=== PATIENT | female | born 1975 | race Caucasian/White ===

== ENCOUNTER 2017-03-03 14:48 | Emergency (ER) | payer SELFPAY ==
[2017-03-03 14:59] VITALS: BP 114/71; PULSE 69; TEMP 98.5; BMI 23.4
[2017-03-03] MEDS ORDERED: amLODIPine BESYLATE 10 MG TABLET (FP) PO ONE (15:55)
--- NOTE | 2017-03-03 15:58 | PDOC ---
History of Present Illness - General Chief Complaint: Vaginal Bleeding Stated Complaint: VAGINAL BLEEDING ( 5 WEEKS ) Time Seen by Provider: 03/03/17 15:50 Past History - Past Medical History Allergies/Adverse Reactions: Allergies Allergy/AdvReac Type Severity Reaction Status Date / Time No Known Allergies Allergy Verified 03/03/17 14:55 Home Medications: Ambulatory Orders Levofloxacin [Levaquin -] 500 mg PO DAILY #10 tablet 10/27/14 - Surgical History Appendectomy: Yes - Suicide/Smoking/Psychosocial Hx Smoking History: Never smoked Have you smoked in the past 12 months: No Hx Alcohol Use: No Substance Use Type: None *Physical Exam - Vital Signs Last Vital Signs Temp Pulse Resp BP Pulse Ox 98.5 F 69 19 114/71 98 03/03/17 14:55 03/03/17 14:55 03/03/17 14:55 03/03/17 14:55 03/03/17 14:55
[2017-03-03] MEDS ORDERED: ACETAMINOPHEN 325 MG TABLET (FP) PO ONE (16:04)
[2017-03-03] MEDS ORDERED: ACETAMINOPHEN 325 MG TABLET (FP) ONE ×2 (16:59→17:37)
[2017-03-03 17:16] LABS: URINE APPEARANCE CLOUDY; URINE BILIRUBIN NEGATIVE (NEGATIVE); URINE BLOOD 1+ (NEGATIVE); URINE COLOR YELLOW; URINE GLUCOSE (UA) NEGATIVE (NEGATIVE); URINE KETONE NEGATIVE (NEGATIVE); URINE NITRITE NEGATIVE (NEGATIVE); URINE PROTEIN NEGATIVE (NEGATIVE); URINE UROBILINOGEN NEGATIVE mg/dL (0.2-1.0)
[2017-03-03 17:21] LABS: BASOPHIL 1.1 % (0-2.0); EOSINOPHIL 1.5 % (0-4.5); MEAN CELL VOLUME 81.7 fl (80-96); MEAN PLT VOLUME 7.8 fl (7.5-11.1); NEUTROPHILS 61.7 % (42.8-82.8); PLATELET COUNT 377 K/MM3 (134-434); RDW 18.3 % (11.6-15.6); WHITE BLOOD COUNT 8.1 K/mm3 (4.0-10.0)
[2017-03-03 17:39] LABS: ALBUMIN 3.5 g/dl (3.4-5.0); ANION GAP 8 (8-16); BILIRUBIN,TOTAL 0.4 mg/dL (0.2-1.0); CALCIUM 9.1 mg/dL (8.5-10.1); CO2 22 mmol/L (21-32); CREATININE 0.5 mg/dL (0.55-1.02); GLUCOSE,RANDOM 85 mg/dL (74-106); SGOT/AST 19 U/L (15-37); SGPT/ALT 28 U/L (12-78)
[2017-03-03 17:54] LABS: ALK PHOS 71 U/L (45-117); URINE BACTERIA RARE /hpf (NONE SEEN); URINE MUCUS RARE; URINE RBC 1 /hpf (0-3); URINE WBC 9 /hpf (3-5)
--- NOTE | 2017-03-03 18:45 | PDOC ---
History of Present Illness - General Chief Complaint: Vaginal Bleeding Stated Complaint: VAGINAL BLEEDING ( 5 WEEKS ) Time Seen by Provider: 03/03/17 15:50 History Source: Patient Exam Limitations: No Limitations - History of Present Illness Travel History: No Initial Comments: 03/03/17 16:39 41-year-old female approximately 5 weeks based on her LMP presents with intermittent vaginal bleeding for the past 2 weeks associated with mid suprapubic cramping. 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 Timing/Duration: reports: intermittent Quality: reports: mild, cramping Abdominal Pain Onset Location: reports: suprapubic Activities at Onset: reports: none Aggravating Factors: improves with: None Alleviating Factors: improves with: None Past History - Travel Traveled outside of the country in the last 30 days: No Close contact w/someone who was outside of country & ill: No - Past Medical History Allergies/Adverse Reactions: Allergies Allergy/AdvReac Type Severity Reaction Status Date / Time No Known Allergies Allergy Verified 03/03/17 14:55 Home Medications: Ambulatory Orders NK [No Known Home Medication] 03/03/17 - Surgical History Appendectomy: Yes - Suicide/Smoking/Psychosocial Hx Smoking History: Never smoked Have you smoked in the past 12 months: No Hx Alcohol Use: No Substance Use Type: None Patient Lives Alone: No Lives with/in: spouse/SO Review of Systems - Review of Systems Able to Perform ROS?: Yes Comments:: 03/03/17 18:46 Constitutional: No: Symptoms Reported HEENTM: No: Symptoms Reported Respiratory: No: Symptoms reported Cardiac (ROS): No: Symptoms Reported ABD/GI: Yes: Abdominal cramping : Yes: Discharge Musculoskeletal: No: Symptoms Reported Integumentary: No: Symptoms Reported Neurological: No: Symptoms reported Endocrine: No: Symptoms Reported Hematologic/Lymphatic: No: Symptoms Reported *Physical Exam - Vital Signs Last Vital Signs Temp Pulse Resp BP Pulse Ox 98.5 F 69 19 114/71 98 03/03/17 14:55 03/03/17 14:55 03/03/17 14:55 03/03/17 14:55 03/03/17 14:55 - Physical Exam General Appearance: Yes: Nourished, Appropriately Dressed. No: Apparent Distress HEENT: positive: EOMI, CHIOMA. negative: Pale Conjunctivae Neck: positive: Supple Respiratory/Chest: positive: Lungs Clear, Normal Breath Sounds. negative: Respiratory Distress, Accessory Muscle Use Cardiovascular: positive: Regular Rhythm, Regular Rate. negative: Murmur Female Pelvic Exam: positive: cervical os closed, vaginal bleeding (scant tannish pink). negative: CMT, adnexal tenderness Gastrointestinal/Abdominal: positive: Soft, Tenderness (midsuprapubic) Musculoskeletal: negative: CVA Tenderness, Vertebral Tenderness Extremity: positive: Normal Capillary Refill. negative: Pedal Edema Integumentary: positive: Normal Color, Warm, Moist Neurologic: positive: Normal Mood/Affect, Motor Strength 09/17 ED Treatment Course - LABORATORY CBC & Chemistry Diagram: 03/03/17 17:02 03/03/17 17:02 - ADDITIONAL ORDERS Additional order review: Laboratory Results 03/03/17 03/03/17 03/03/17 17:02 17:02 17:02 Sodium 136 Potassium 4.4 D Chloride 106 Carbon Dioxide 22 Anion Gap 8 BUN 13 D Creatinine 0.5 L D Creat Clearance w eGFR > 60 Random Glucose 85 D Calcium 9.1 Total Bilirubin 0.4 D AST 19 D ALT 28 D Alkaline Phosphatase 71 D Total Protein 8.0 Albumin 3.5 Beta HCG, Quant 23592.6 Urine Color Yellow Urine Appearance Cloudy Urine pH 7.0 Urine Protein Negative Urine Glucose (UA) Negative Urine Ketones Negative Urine Blood 1+ H Urine Nitrite Negative Urine Bilirubin Negative Urine Urobilinogen Negative Urine RBC 1 Urine WBC 9 Ur Epithelial Cells Rare Urine Bacteria Rare Urine Mucus Rare Urine HCG, Qual Positive Blood Type O POSITIVE Antibody Screen Negative 03/03/17 17:02 RBC 4.61 MCV 81.7 MCHC 33.0 RDW 18.3 H D MPV 7.8 Neutrophils % 61.7 Lymphocytes % 29.3 D Monocytes % 6.4 Eosinophils % 1.5 D Basophils % 1.1 - RADIOLOGY Radiology Studies Ordered: Category Date Time Status <14WKS US [US] Stat Ultrasound 03/03/17 18:07 Ordered - Medications Given in the ED: ED Medications Discontinued Medications Generic Name Dose Route Start Last Admin Trade Name Freq PRN Reason Stop Dose Admin Acetaminophen 650 mg 03/03/17 16:04 03/03/17 17:00 Tylenol - PO 03/03/17 16:05 650 mg ONCE ONE Administration Amlodipine Besylate 10 mg 03/03/17 15:55 03/03/17 17:42 Norvasc - PO 03/03/17 15:56 Not Given ONCE ONE Medical Decision Making - Medical Decision Making 03/03/17 16:50 Patient +5 weeks based on LMP with complaints of mid suprapubic cramping and intermittent vaginal spotting for the past 2 weeks. Patient exam hadn't mild mid suprapubic tenderness with scant brownish pink discharge. Patient ordered for labs, type and screen, urine, Tylenol and ultrasound. 03/03/17 18:51 Laboratory Tests 03/03/17 03/03/17 03/03/17 17:02 17:02 17:02 WBC 8.1 Hgb 12.4 D Hct 37.7 Plt Count 377 D Neutrophils % 61.7 Sodium 136 Potassium 4.4 D Chloride 106 Carbon Dioxide 22 Anion Gap 8 BUN 13 D Creatinine 0.5 L D Creat Clearance w eGFR > 60 Random Glucose 85 D Calcium 9.1 Total Bilirubin 0.4 D AST 19 D ALT 28 D Beta HCG, Quant 97863.6 Urine Blood 1+ H Urine Nitrite Negative Ur Leukocyte Esterase Pending Urine RBC 1 Urine WBC 9 Urine HCG, Qual Positive 03/03/17 18:57
--- NOTE | 2017-03-03 20:11 | PDOC ---
*Physical Exam - Vital Signs Last Vital Signs Temp Pulse Resp BP Pulse Ox 98.5 F 69 19 114/71 98 03/03/17 14:55 03/03/17 14:55 03/03/17 14:55 03/03/17 14:55 03/03/17 14:55 ED Treatment Course - LABORATORY CBC & Chemistry Diagram: 03/03/17 17:02 03/03/17 17:02 - ADDITIONAL ORDERS Additional order review: Laboratory Results 03/03/17 03/03/17 03/03/17 17:02 17:02 17:02 Sodium 136 Potassium 4.4 D Chloride 106 Carbon Dioxide 22 Anion Gap 8 BUN 13 D Creatinine 0.5 L D Creat Clearance w eGFR > 60 Random Glucose 85 D Calcium 9.1 Total Bilirubin 0.4 D AST 19 D ALT 28 D Alkaline Phosphatase 71 D Total Protein 8.0 Albumin 3.5 Beta HCG, Quant 32885.6 Urine Color Yellow Urine Appearance Cloudy Urine pH 7.0 Urine Protein Negative Urine Glucose (UA) Negative Urine Ketones Negative Urine Blood 1+ H Urine Nitrite Negative Urine Bilirubin Negative Urine Urobilinogen Negative Urine RBC 1 Urine WBC 9 Ur Epithelial Cells Rare Urine Bacteria Rare Urine Mucus Rare Urine HCG, Qual Positive Blood Type O POSITIVE Antibody Screen Negative 03/03/17 17:02 RBC 4.61 MCV 81.7 MCHC 33.0 RDW 18.3 H D MPV 7.8 Neutrophils % 61.7 Lymphocytes % 29.3 D Monocytes % 6.4 Eosinophils % 1.5 D Basophils % 1.1 - Medications Given in the ED: ED Medications Discontinued Medications Generic Name Dose Route Start Last Admin Trade Name Juan Miguelq PRN Reason Stop Dose Admin Acetaminophen 650 mg 03/03/17 16:04 03/03/17 17:00 Tylenol - PO 03/03/17 16:05 650 mg ONCE ONE Administration Amlodipine Besylate 10 mg 03/03/17 15:55 03/03/17 17:42 Norvasc - PO 03/03/17 15:56 Not Given ONCE ONE Progress Note - Progress Note Progress Note: A: IUP, UTI P: WBC: 9. leuks pending. will treat due to status Medical Decision Making - Medical Decision Making 03/03/17 19:58 US: single live IUP at 8 weeks gestation *DC/Admit/Observation/Transfer Diagnosis at time of Disposition: UTI (urinary tract infection) Qualifiers: Urinary tract infection type: acute cystitis Hematuria presence: without hematuria Qualified Code(s): N30.00 - Acute cystitis without hematuria; N30.00 - Acute cystitis without hematuria Normal intrauterine on ultrasound Qualifiers: Trimester: first trimester Qualified Code(s): Z34.91 - Encounter for supervision of normal , unspecified, first trimester; Z34.91 - Encounter for supervision of normal , unspecified, first trimester - Discharge Dispostion Disposition: HOME - Prescriptions Prescriptions: Cephalexin Monohydrate [Keflex -] 500 mg PO BID #20 capsule - Referrals Referrals: Den Loo MD [Staff Physician] - Call tomorrow - Patient Instructions Printed Discharge Instructions: Common Discomforts and Bodily Changes During Additional Instructions: drink plenty of fluids take vitamins daily follow up with curer foam rubber as soon as possible. take Keflex as prescribed. return to the ER if you are soaking through 2 pads per hour, severe abdominal pain, fever.
[2017-03-03 20:55] LABS: URINE LEUK ESTERASE Negative (NEGATIVE)
== END 2017-03-03 20:53 | disposition home or self-care (01) ==
LOC: JER 14:48
DX: O23.31 Infections of other parts of urinary tract in pregnancy, first trimester (principal); B96.89 Other specified bacterial agents as the cause of diseases classified elsewhere; Z3A.08 8 weeks gestation of pregnancy
CPT/HCPCS: 36415; 76801-TC; 80053; 81003; 81015; 84702; 84703; 85025; 86850; 86900; 86901; 87086; 87186; 99281-25

== ENCOUNTER 2017-04-01 19:00 | Emergency (ER) | payer SELFPAY ==
[2017-04-01 19:06] VITALS: BP 125/88; PULSE 68; TEMP 98.3; BMI 25.9
[2017-04-01 20:08] LABS: URINE APPEARANCE CLEAR; URINE BILIRUBIN NEGATIVE (NEGATIVE); URINE BLOOD 3+ (NEGATIVE); URINE COLOR YELLOW; URINE GLUCOSE (UA) NEGATIVE (NEGATIVE); URINE KETONE NEGATIVE (NEGATIVE); URINE NITRITE NEGATIVE (NEGATIVE); URINE PROTEIN NEGATIVE (NEGATIVE); URINE UROBILINOGEN NEGATIVE mg/dL (0.2-1.0)
[2017-04-01 20:10] LABS: EOSINOPHIL 2.8 % (0-4.5); MCH 27.7 pg (25.7-33.7); MCHC 33.2 g/dl (32.0-36.0); MEAN CELL VOLUME 83.6 fl (80-96); MEAN PLT VOLUME 7.9 fl (7.5-11.1); NEUTROPHILS 59.6 % (42.8-82.8); PLATELET COUNT 339 K/MM3 (134-434); RDW 16.7 % (11.6-15.6); WHITE BLOOD COUNT 10.5 K/mm3 (4.0-10.0)
[2017-04-01 20:25] LABS: ALBUMIN 3.5 g/dl (3.4-5.0); ANION GAP 9 (8-16); BILIRUBIN,TOTAL 0.3 mg/dL (0.2-1.0); CALCIUM 8.6 mg/dL (8.5-10.1); CO2 23 mmol/L (21-32); CREATININE 0.6 mg/dL (0.55-1.02); GLUCOSE,RANDOM 85 mg/dL (74-106); SGOT/AST 14 U/L (15-37); SGPT/ALT 20 U/L (12-78); TOT PROT 7.7 g/dl (6.4-8.2)
[2017-04-01 20:40] LABS: ALK PHOS 66 U/L (45-117)
--- NOTE | 2017-04-01 20:46 | PDOC ---
History of Present Illness - General Chief Complaint: Vaginal Bleeding Stated Complaint: 11WKS WITH ABD PAIN Time Seen by Provider: 04/01/17 19:30 History Source: Patient, [employer] Used Exam Limitations: Language Barrier - History of Present Illness Initial Comments: 04/01/17 20:43 Patient is a with no significant medical history here today complaining of vaginal spotting for the past several weeks. She also complains of some mild lower abdominal pain. She was here about a month with similar complaints. She was found to have an IUP at about 8 weeks and a UTI. She reports compliance with a 10 day prescription for keflex. She is requesting services. She denies fevers, and chills. She says that she had one episode of vomiting yesterday. She reports that she has no OB or PCP. Past History - Past Medical History Allergies/Adverse Reactions: Allergies Allergy/AdvReac Type Severity Reaction Status Date / Time No Known Allergies Allergy Verified 04/01/17 19:06 Home Medications: Ambulatory Orders Cephalexin Monohydrate [Keflex -] 500 mg PO BID #20 capsule 03/03/17 Nitrofurantoin Monohyd/M-Cryst [Nitrofurantoin [place]-Mcr 100 mg] 100 mg PO BID # 13 capsule 04/01/17 COPD: No - Surgical History Appendectomy: Yes - Reproductive History (#): 5 Para: 3 Therapeutic (s) & number: Yes (1) - Suicide/Smoking/Psychosocial Hx Smoking History: Never smoked Have you smoked in the past 12 months: No Information on smoking cessation initiated: No Hx Alcohol Use: No Drug/Substance Use Hx: No Substance Use Type: None Review of Systems - Review of Systems Comments:: 04/01/17 20:58 GENERAL/CONSTITUTIONAL: No fever or chills. No weakness. HEAD, EYES, EARS, NOSE AND THROAT: No change in vision. No sore throat. CARDIOVASCULAR: No chest pain or shortness of breath RESPIRATORY: No cough, wheezing, or hemoptysis. GASTROINTESTINAL: Positive for nausea and vomiting. Negative for diarrhea or constipation. GENITOURINARY: No dysuria, frequency, or change in urination. MUSCULOSKELETAL: No joint or muscle swelling or pain. No neck or back pain. SKIN: No rash NEUROLOGIC: Positive for headache. Negative for vertigo, loss of consciousness, or change in strength/sensation. ENDOCRINE: No increased thirst. No abnormal weight change HEMATOLOGIC/LYMPHATIC: No anemia, easy bleeding, or history of blood clots. ALLERGIC/IMMUNOLOGIC: No hives or skin allergy. *Physical Exam - Vital Signs Last Vital Signs Temp Pulse Resp BP Pulse Ox 98.3 F 68 18 125/88 98 04/01/17 19:05 04/01/17 19:05 04/01/17 19:05 04/01/17 19:05 04/01/17 19:05 - Physical Exam Comments: 04/01/17 20:59 GENERAL: Awake, alert, and fully oriented, in no acute distress HEAD: No signs of trauma, normocephalic, atraumatic EYES: PERRLA, EOMI, sclera anicteric, conjunctiva clear ENT: Auricles normal inspection, hearing grossly normal, nares patent, oropharynx clear without exudates. Moist mucosa NECK: Normal ROM, supple, no lymphadenopathy, JVD, or masses LUNGS: No distress, speaks full sentences, clear to auscultation bilaterally HEART: Regular rate and rhythm, normal S1 and S2, no murmurs, rubs or gallops, peripheral pulses normal and equal bilaterally. ABDOMEN: Mildly tender in lower abdomen. No guarding, no rebound. No masses EXTREMITIES: Normal inspection, Normal range of motion, no edema. No clubbing or cyanosis. NEUROLOGICAL: Cranial nerves II through XII grossly intact. Normal speech, normal gait, no focal sensorimotor deficits SKIN: Warm, Dry, normal turgor, no rashes or lesions noted. PELVIC: Normal external genitalia, no CMT, no adenexal masses, moderate amount of vaginal blood, os not visualized ED Treatment Course - LABORATORY CBC & Chemistry Diagram: 04/01/17 19:45 04/01/17 19:45 - ADDITIONAL ORDERS Additional order review: Laboratory Results 04/01/17 19:45 Sodium 134 L Potassium 4.1 Chloride 102 Carbon Dioxide 23 Anion Gap 9 BUN 14 Creatinine 0.6 Creat Clearance w eGFR > 60 Random Glucose 85 Calcium 8.6 Total Bilirubin 0.3 D AST 14 L D ALT 20 D Alkaline Phosphatase 66 Total Protein 7.7 Albumin 3.5 Beta HCG, Quant 84182.7 04/01/17 19:45 RBC 4.27 MCV 83.6 MCHC 33.2 RDW 16.7 H MPV 7.9 Neutrophils % 59.6 Lymphocytes % 30.6 Monocytes % 6.0 Eosinophils % 2.8 D Basophils % 1.0 Medical Decision Making - Medical Decision Making 04/01/17 21:00 41F with here today complaining of vaginal bleeding. Vital signs stable and normal. Will evaluate with labs. IUP already confirmed. Do not believe we need an ultrasound at this time. Type O+ last visit. [facility] [place]. 04/01/17 21:04 Laboratory Tests 04/01/17 04/01/17 04/01/17 19:45 19:45 20:01 WBC 10.5 H Hgb 11.8 Hct 35.7 Plt Count 339 BUN 14 Creatinine 0.6 Beta HCG, Quant 90440.7 Urine Blood 3+ H CBC normal for 11wks . Kidney function normal. Urine shows 3+ blood. bhcg wnl for 11wks of . 04/01/17 21:26 UA shows 10 WBC, patient is mildly symptomatic. Will discharge with follow up and nitrofurantoin. *DC/Admit/Observation/Transfer Diagnosis at time of Disposition: UTI (urinary tract infection) - Discharge Dispostion Disposition: HOME Condition at time of disposition: Good Admit: No - Prescriptions Prescriptions: Nitrofurantoin Monohyd/M-Cryst [Nitrofurantoin [place]-Mcr 100 mg] 100 mg PO BID # 13 capsule - Referrals - Patient Instructions Printed Discharge Instructions: DI for Urinary Tract Infection (UTI) Additional Instructions: [facility] call [facility]. Please return if you have any new, concerning or worsening symptoms. Print Language: KAZAKH - Post Discharge Activity
[2017-04-01 21:02] LABS: URINE BACTERIA RARE /hpf (NONE SEEN); URINE MUCUS RARE; URINE RBC 29; URINE WBC 10
[2017-04-01] MEDS ORDERED: NITROFURANTOIN MACROCRYSTAL 50 MG CAPSULE (FP) PO SCH (21:30)
--- NOTE | 2017-04-01 21:31 | PDOC ---
Attending Attestation - HPI HPI: 04/01/17 21:31 The patient is a 41 year old female (), with no significant past medical history, who presents to the emergency department with vaginal spotting for approx. three weeks. She reports associated symptoms of subjective fever and reports two episodes of vomit yesterday. The patient reports her last menstrual period was January 09 and she is interested in information for services. She denies recent fever, chills, headache or dizziness. She denies recent chest pain or shortness of breath. Patient states she does not have a PCP. - Physicial Exam PE: 04/01/17 21:32 Vitals: Triage Vital signs reviewed General Appearance: no acute distress, well nourished well developed Cardiac: Regular rate and rhythym, no murmurs, no rubs, no gallops Lungs: Clear to auscultation bilateral, good air movement bilaterally Abdomen: Soft, non distended, normal bowel sounds, non tender to palpation Extremities: Full range of motion to all extremities, no cyanosis, clubbing, or edema Skin: Warm and dry, no rashes or lesions, no rash, no petechiae Psych: Normal mood, normal affect <Chip Hu - Last Filed: 04/01/17 21:31> - Resident Resident Name: Alfredo Fairbanks - ED Attending Attestation I have performed the following: I have examined & evaluated the patient, The case was reviewed & discussed with the resident, I agree w/resident's findings & plan, Exceptions are as noted - Medical Decision Making 04/02/17 02:09 Well-appearing no apparent distress no abdominal pain on examination history examination consistent with threatened miscarriage. Patient presents to the emergency department inquiring about obtaining an . Lab results within normal limits. Previous Rh status is positive Given no abdominal pain normal vital signs patient provided with outpatient follow-up Findings, the need for follow-up and strict return instructions discussed with patient. <Farhad Armenta - Last Filed: 04/02/17 02:10>
[2017-04-01] MEDS ORDERED: NITROFURANTOIN MACROCRYSTAL 50 MG CAPSULE (FP) ONE (21:45)
[2017-04-02 16:00] LABS: URINE LEUK ESTERASE TRACE (NEGATIVE)
== END 2017-04-01 21:47 | disposition home or self-care (01) ==
LOC: JER 19:00
DX: O23.31 Infections of other parts of urinary tract in pregnancy, first trimester (principal); Z3A.11 11 weeks gestation of pregnancy
CPT/HCPCS: 36415; 80053; 81003; 81015; 84702; 85025; 86850; 86900; 86901; 87086; 87186; 99282-25

== ENCOUNTER 2017-04-19 00:47 | Observation (INO) | payer MEDICARE ==
--- NOTE | 2017-04-19 02:58 | PDOC ---
History of Present Illness - General Chief Complaint: Pain Stated Complaint: ABDOMINAL PAIN Time Seen by Provider: 04/19/17 02:36 Past History - Past Medical History Allergies/Adverse Reactions: Allergies Allergy/AdvReac Type Severity Reaction Status Date / Time No Known Allergies Allergy Verified 04/19/17 00:52 Home Medications: Ambulatory Orders NK [No Known Home Medication] 04/19/17 COPD: No - Surgical History Appendectomy: Yes - Reproductive History (#): 5 Para: 3 Therapeutic (s) & number: Yes (1) - Suicide/Smoking/Psychosocial Hx Smoking History: Never smoked Have you smoked in the past 12 months: No Information on smoking cessation initiated: No Hx Alcohol Use: No Drug/Substance Use Hx: No Substance Use Type: None *Physical Exam - Vital Signs Last Vital Signs Temp Pulse Resp BP Pulse Ox 97.9 F 74 14 124/98 100 04/19/17 00:53 04/19/17 00:53 04/19/17 00:53 04/19/17 00:53 04/19/17 00:53 ED Treatment Course - LABORATORY CBC & Chemistry Diagram: 04/19/17 03:33 04/19/17 03:33 Medical Decision Making - Medical Decision Making 04/19/17 05:02 41-year-old female with elective 3 days ago presents with sudden onset right lower quadrant pain at 10 PM last night. Vitals unremarkable. Patient appears very uncomfortable with colicky pain. Differential includes renal colic versus appendicitis versus ovarian pathology. Will obtain blood work, UA and a CT scan to start. Will also control pain and provide antiemetics. *DC/Admit/Observation/Transfer Diagnosis at time of Disposition: Kidney calculi - Discharge Dispostion Condition at time of disposition: Stable - Referrals - Patient Instructions - Post Discharge Activity - Attestations Physician Attestion: 04/19/17 06:05 I, Dr. Anthony Lo MD, attest that this document has been prepared under my direction and personally reviewed by me in its entirety. I further attest, that it accurately reflects all work, treatment, procedures and medical decision -making performed by me.
[2017-04-19] MEDS ORDERED: SODIUM CHLORIDE 0.9% 500 ML INFUS.BAG IV ONE (03:30)
[2017-04-19] MEDS ORDERED: morphine CARPU-JECT 4 MG/1 ML DISP.SYRIN IVPUSH ONE ×2 (03:30→05:56)
[2017-04-19] MEDS ORDERED: ONDANSETRON 4 MG/2 ML VIAL IVPUSH ONE (03:31)
[2017-04-19 03:40] LABS: BASO % 0.4 % (0-2.0); EOS % 2.8 % (0-4.5); MCH 28.3 pg (25.7-33.7); MCHC 33.1 g/dl (32.0-36.0); MEAN CELL VOLUME 85.8 fl (80-96); MEAN PLT VOLUME 7.6 fl (7.5-11.1); NEUT % 78.3 % (42.8-82.8); PLATELET COUNT 302 K/MM3 (134-434); RDW 16.6 % (11.6-15.6); WHITE BLOOD COUNT 12.8 K/mm3 (4.0-10.0)
[2017-04-19] MEDS ORDERED: ONDANSETRON 4 MG/2 ML VIAL ONE (03:45)
[2017-04-19] MEDS ORDERED: morphine SULFATE 4 MG/ML VIAL ONE ×2 (03:45→06:02)
[2017-04-19 03:51] LABS: URINE APPEARANCE SLCLOUDY; URINE BILIRUBIN NEGATIVE (NEGATIVE); URINE BLOOD 3+ (NEGATIVE); URINE COLOR YELLOW; URINE GLUCOSE (UA) NEGATIVE (NEGATIVE); URINE KETONE NEGATIVE (NEGATIVE); URINE NITRITE NEGATIVE (NEGATIVE); URINE UROBILINOGEN NEGATIVE mg/dL (0.2-1.0)
[2017-04-19 03:59] LABS: URINE PROTEIN 2+ (NEGATIVE)
[2017-04-19 04:01] LABS: URINE MUCUS FEW; URINE RBC 483 /hpf (0-3); URINE WBC 29 /hpf (3-5)
[2017-04-19 04:06] LABS: ALK PHOS 66 U/L (45-117); ANION GAP 9 (8-16); BILIRUBIN,TOTAL 0.1 mg/dL (0.2-1.0); CO2 25 mmol/L (21-32); CREATININE 0.7 mg/dL (0.55-1.02); GLUCOSE,RANDOM 114 mg/dL (74-106); SGPT/ALT 18 U/L (12-78); TOT PROT 7.1 g/dl (6.4-8.2)
[2017-04-19 04:25] LABS: SGOT/AST 26 U/L (15-37)
[2017-04-19] MEDS ORDERED: CEFTRIAXONE 1 GM in DEXTROSE 5%-WATER - 50 ML IVPB ONE (05:55)
[2017-04-19] MEDS ORDERED: KETOROLAC TROMETHAMINE 15 MG/ML VIAL IVPUSH ONE (05:56)
[2017-04-19] MEDS ORDERED: KETOROLAC TROMETHAMINE 30 MG/1 ML VIAL ONE (06:02)
[2017-04-19] MEDS ORDERED: CEFTRIAXONE 1 GM/50 ML BAG ONE (06:02)
--- NOTE | 2017-04-19 07:26 | HP ---
CHIEF COMPLAINT: Abdominal pain PCP: None HISTORY OF PRESENT ILLNESS: This is a 41 year old female with PMHx of appendectomy (2000), surgical (04/16/17), who presented to the ED with RLQ, periumbilical, and right back pain since yesterday evening. The patient reports that on Monday 04/16 she had an elective surgical and then last night around 10pm she began to have RLE pain that radiated to her back. She describes the pain as sharp and constant. She reports having associated nausea and vomiting (non-bloody) last night. She denies any diarrhea, chest pain, palpitations, headache, dizziness, lower extremity swelling, dysuria, hematuria, frequency. ER course was notable for: (1) Temp 97.9, pulse 74, BP 124/98, resp 14, O2 100% on RA (2) WBC 12.8 (3) UA with 3+ blood, WBC 29, leukocyte estrace pending (4) CTAP with 10x7mm right UVJ calculus with moderate right hydronephrosis Recent Travel: denies PAST MEDICAL HISTORY: as above PAST SURGICAL HISTORY: as above Social History: Smoking: denies Alcohol: denies Drugs: denies Family History: Allergies No Known Allergies Allergy (Verified 04/19/17 00:52) HOME MEDICATIONS: Home Medications Medication Instructions Recorded NK [No Known Home Medication] 04/19/17 REVIEW OF SYSTEMS CONSTITUTIONAL: Absent: fever, chills, diaphoresis, generalized weakness, malaise, loss of appetite, weight change HEENT: Absent: rhinorrhea, nasal congestion, throat pain, throat swelling, difficulty swallowing, mouth swelling, ear pain, eye pain, visual changes CARDIOVASCULAR: Absent: chest pain, syncope, palpitations, irregular heart rate , lightheadedness, peripheral edema RESPIRATORY: Absent: cough, shortness of breath, dyspnea with exertion, orthopnea, wheezing, stridor, hemoptysis GASTROINTESTINAL: Abdominal pain radiating to the right back that began last night around 10 pm with associated nausea and vomiting. Absent: abdominal distension, diarrhea, constipation, melena, hematochezia GENITOURINARY: Absent: dysuria, frequency, urgency, hesitancy, hematuria, flank pain, genital pain MUSCULOSKELETAL: Absent: myalgia, arthralgia, joint swelling, back pain, neck pain SKIN: Absent: rash, itching, pallor HEMATOLOGIC/IMMUNOLOGIC: Absent: easy bleeding, easy bruising, lymphadenopathy, frequent infections ENDOCRINE:Absent: unexplained weight gain, unexplained weight loss, heat intolerance, cold intolerance NEUROLOGIC: Absent: headache, focal weakness or paresthesias, dizziness, unsteady gait, seizure, mental status changes, bladder or bowel incontinence PSYCHIATRIC: Absent: anxiety, depression, suicidal or homicidal ideation, hallucinations. PHYSICAL EXAMINATION Vital Signs - 24 hr 04/19/17 00:53 Temperature 97.9 F Pulse Rate 74 Respiratory 14 Rate Blood Pressure 124/98 O2 Sat by Pulse 100 Oximetry (%) GENERAL: Awake, alert, and fully oriented, in no acute distress. HEAD: Normal with no signs of trauma. EYES: Pupils equal, round and reactive to light, extraocular movements intact, sclera anicteric, conjunctiva clear. No lid lag. EARS, NOSE, THROAT: Ears normal, nares patent, oropharynx clear without exudates. Moist mucous membranes. NECK: Normal range of motion, supple without lymphadenopathy, no masses LUNGS: Breath sounds equal, clear to auscultation bilaterally. No wheezes, and no crackles. No accessory muscle use. HEART: Regular rate and rhythm, normal S1 and S2 without murmur, rub or gallop. ABDOMEN: Soft, nontender, not distended, normoactive bowel sounds, no guarding, no rebound, no masses. No hepatomegaly or splenomegaly. MUSCULOSKELETAL: Normal range of motion at all joints. No bony deformities or tenderness. No CVA tenderness. UPPER EXTREMITIES: 2+ pulses, warm, well-perfused. No cyanosis. No clubbing. No peripheral edema. LOWER EXTREMITIES: 2+ pulses, warm, well-perfused. No calf tenderness. No peripheral edema. NEUROLOGICAL: Cranial nerves II-XII intact. Normal speech. Normal gait. PSYCHIATRIC: Cooperative. Good eye contact. Appropriate mood and affect. SKIN: Warm, dry, normal turgor, no rashes or lesions noted, normal capillary refill. Laboratory Results - last 24 hr 04/19/17 04/19/17 04/19/17 03:33 03:33 03:35 WBC 12.8 H RBC 3.92 Hgb 11.1 Hct 33.6 MCV 85.8 MCH 28.3 MCHC 33.1 RDW 16.6 H Plt Count 302 MPV 7.6 Neutrophils % 78.3 D Lymphocytes % 14.8 D Monocytes % 3.7 L Eosinophils % 2.8 Basophils % 0.4 Sodium 139 Potassium 4.9 Chloride 105 Carbon Dioxide 25 Anion Gap 9 BUN 15 Creatinine 0.7 Creat Clearance w eGFR > 60 Random Glucose 114 H D Calcium 9.0 Total Bilirubin 0.1 L D AST 26 D ALT 18 Alkaline Phosphatase 66 Total Protein 7.1 Albumin 3.0 L Beta HCG, Quant 2172.2 Urine Color Yellow Urine Appearance Slcloudy Urine pH 5.0 Ur Specific [place] 1.029 Urine Protein 2+ H Urine Glucose (UA) Negative Urine Ketones Negative Urine Blood 3+ H Urine Nitrite Negative Urine Bilirubin Negative Urine Urobilinogen Negative Urine WBC (Auto) 29 Urine RBC (Auto) 483 Ur Epithelial Cells Few Urine Mucus Few Urine HCG, Qual Positive Assessment: This is a 41 year old female with PMHx of appendectomy (2000), surgical (04/16/17), who presented to the ED with RLQ, periumbilical, and right back pain since yesterday evening. Plan: 1) : Right renal calculi with associate moderate right hydronephrosis - NPO - IV fluids - Pain management - Zofran prn for nausea/pain - F/u urology consult 2) UTI - F/u urine culture - Continue Ceftriaxone 1g IVPB daily 3) Elective surgical 04/16/17 - Hcg level appears to be trending down - Will need to follow-up with OB as outpatient to assure Hcg continues to trend down 4) F/E/N: - IV fluids - NPO 5) Prophylaxis: - OOB ambulating - SCDs bilaterally - Hold all chemical DVT prophylaxis 2/2 possible urological procedure today 6) Dispo: - Once condition improves CODE STATUS: FULL CODE Visit type - Emergency Visit Emergency Visit: Yes ED Registration Date: 04/19/17 Care time: The patient presented to the Emergency Department on the above date and was hospitalized for further evaluation of their emergent condition. - New Patient This patient is new to me today: Yes Date on this admission: 04/19/17 - Critical Care Critical Care patient: No
[2017-04-19] MEDS ORDERED: DEXTROSE 5%-NORMAL SALINE 1,000 ML IV SCH ×2 (08:30→14:45)
[2017-04-19] MEDS ORDERED: morphine SULFATE 4 MG/ML VIAL IVPB PRN (08:30)
--- NOTE | 2017-04-19 10:32 | CONSULT ---
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
[2017-04-19 11:21] VITALS: BMI 25.7
[2017-04-19] MEDS ORDERED: oxyCODONE HCL 5 MG TABLET PO PRN (11:44)
[2017-04-19] MEDS ORDERED: IBUPROFEN 800 MG/8 ML IJ IVPB PRN (11:44)
[2017-04-19] MEDS ORDERED: SODIUM CHLORIDE 1,000 ML IV SCH (11:45)
[2017-04-19 12:17] LABS: URINE LEUK ESTERASE Negative (NEGATIVE)
[2017-04-19] MEDS ORDERED: PROPOFOL 20 ML ONE (12:42)
[2017-04-19] MEDS ORDERED: MIDAZOLAM HCL 2 MG/2 ML SINGLE DOSE VIAL ONE (12:42)
--- NOTE | 2017-04-19 16:30 | DS ---
Physical Examination Vital Signs: Vital Signs Temperature 98.4 F 04/19/17 16:10 Pulse Rate 68 04/19/17 16:10 Respiratory Rate 20 04/19/17 16:10 Blood Pressure 92/56 04/19/17 16:10 O2 Sat by Pulse Oximetry (%) 99 04/19/17 15:00 Labs: CBC, BMP 04/19/17 03:33 04/19/17 03:33 Discharge Summary Reason For Visit: CALCULUS OF KIDNEY Current Active Problems Kidney calculi (Acute) Hospital Course: Provided the patient with nauruan handout re: ureteral stent placement Condition: Improved - Instructions Diet, Activity, Other Instructions: Please return to the ED with new, persistent, or worsening symptoms. Follow-up with Dr. Hensley as scheduled on 04/21/17 at 9:15am for further management of your ureteral stent. You MUST complete the course of Ciprofloxacin as prescribed. Referrals: Rigo Tobin MD [Staff Physician] - 1 Week Pieter Hensley MD., MD [Staff Physician] - (Please follow-up with Dr. Hensley ( urology) on 04/21/17 at 9:15am for further management of your ureteral stent) Disposition: HOME - Home Medications Comprehensive Discharge Medication List: Ambulatory Orders Ciprofloxacin [Cipro -] 500 mg PO Q12H #20 tablet 04/19/17 Ibuprofen 600 mg PO Q8H #60 tablet 04/19/17
[2017-04-19 18:25] VITALS: BP 110/62; PULSE 84; TEMP 98.5
[2017-04-20] MEDS ORDERED: CEFTRIAXONE 1 G/50 ML PREMIX 50 ML IVPB SCH (10:00)
== END 2017-04-19 19:55 | disposition home or self-care (01) ==
LOC: JER 00:47 → JERBED 06:05 → J8W 08:08
PROVIDERS: ADMIT Internal Medicine; ATTEND Nurse Practitioner Family
PROC: 3E033GC Introduction of Other Therapeutic Substance into Peripheral Vein, Percutaneous Approach (ICD-10-PCS; 2017-04-19)
PROC: 3E0333Z Introduction of Anti-inflammatory into Peripheral Vein, Percutaneous Approach (ICD-10-PCS; 2017-04-19)
PROC: 3E03329 Introduction of Other Anti-infective into Peripheral Vein, Percutaneous Approach (ICD-10-PCS; principal; 2017-04-19 11:00)
PROC: 3E033NZ Introduction of Analgesics, Hypnotics, Sedatives into Peripheral Vein, Percutaneous Approach (ICD-10-PCS; 2017-04-19 11:00)
PROC: 3E033NZ Introduction of Analgesics, Hypnotics, Sedatives into Peripheral Vein, Percutaneous Approach (ICD-10-PCS; 2017-04-19 11:00)
DX: N13.2 Hydronephrosis with renal and ureteral calculous obstruction (principal); N39.0 Urinary tract infection, site not specified
CPT/HCPCS: 36415; 74177-TC; 76000-TC; 80053; 81003; 81015; 84702; 84703; 85025; 87086; 94760; 96365; 96375; 96376; 99285-25; G0378

== ENCOUNTER 2017-07-20 14:04 | Emergency (ER) | payer OTHER ==
[2017-07-20 14:15] VITALS: TEMP 98.3; BMI 24.7
--- NOTE | 2017-07-20 14:46 | PDOC ---
Attending Attestation - Resident Resident Name: Alex Walters - ED Attending Attestation I have performed the following: I have examined & evaluated the patient, The case was reviewed & discussed with the resident, I agree w/resident's findings & plan, Exceptions are as noted - HPI HPI: 41 yo F history kidney stone s/p recent ureteral stent placement in April presents with hematuria, suprapubic pain. Denies fever, chills, back pain, N/V. No prior similar symptoms. She has a follow-up appointment with Dr. Hensley tomorrow for the stent. - Physicial Exam PE: GENERAL: Awake, alert, and fully oriented, in no acute distress HEAD: No signs of trauma EYES: PERRLA, EOMI, sclera anicteric, conjunctiva clear ENT: Auricles normal inspection, hearing grossly normal, nares patent, oropharynx clear without exudates. Moist mucosa NECK: Normal ROM, supple, no lymphadenopathy, JVD, or masses LUNGS: Breath sounds equal, clear to auscultation bilaterally. No wheezes, and no crackles HEART: Regular rate and rhythm, normal S1 and S2, no murmurs, rubs or gallops ABDOMEN: Soft, +mild suprapubic tenderness, normoactive bowel sounds. No guarding, no rebound. No masses. No CVAT. EXTREMITIES: Normal range of motion, no edema. No clubbing or cyanosis. No cords, erythema, or tenderness NEUROLOGICAL: Cranial nerves II through XII grossly intact. Normal speech, normal gait SKIN: Warm, Dry, normal turgor, no rashes or lesions noted. - Medical Decision Making Urine sample from patient is malodorous, yellow. Likely UTI. Will await UA results and d/w Dr. Hensley in light of stent that is in place.
--- NOTE | 2017-07-20 15:16 | PDOC ---
History of Present Illness - General Chief Complaint: Pain Stated Complaint: PAIN IN LOWER ABDOMEN, Hematuria Time Seen by Provider: 07/20/17 14:39 History Source: Patient Exam Limitations: No Limitations - History of Present Illness Initial Comments: 07/20/17 16:46 41 yo F history kidney stone s/p recent ureteral stent placement in April presents with hematuria, suprapubic pain. Denies fever, chills, back pain, N/V. No prior similar symptoms. She has a follow-up appointment with Dr. Hensley tomorrow for the stent. Past History - Past Medical History Allergies/Adverse Reactions: Allergies Allergy/AdvReac Type Severity Reaction Status Date / Time No Known Allergies Allergy Verified 07/20/17 14:15 Home Medications: Ambulatory Orders Ciprofloxacin [Cipro -] 500 mg PO Q12H #20 tablet 04/19/17 Ibuprofen 600 mg PO Q8H #60 tablet 04/19/17 Ciprofloxacin 500 mg PO BID #20 [email or web address] 07/20/17 Ciprofloxacin [Cipro -] 500 mg PO Q12H #28 tablet 07/20/17 COPD: No Kidney Stones: Yes - Surgical History Appendectomy: Yes - Reproductive History (#): 5 Para: 3 Therapeutic (s) & number: Yes (1) - Suicide/Smoking/Psychosocial Hx Smoking History: Never smoked Have you smoked in the past 12 months: No Information on smoking cessation initiated: No Hx Alcohol Use: No Drug/Substance Use Hx: No Substance Use Type: None Hx Substance Use Treatment: No Review of Systems - Review of Systems Able to Perform ROS?: Yes Is the patient limited Angolan proficient: No Constitutional: No: Symptoms Reported HEENTM: No: Symptoms Reported Respiratory: No: Symptoms reported Cardiac (ROS): No: Symptoms Reported ABD/GI: No: Symptoms Reported : Yes: See HPI Musculoskeletal: No: Symptoms Reported Integumentary: No: Symptoms Reported Neurological: No: Symptoms reported All Other Systems: Reviewed and Negative *Physical Exam - Vital Signs Last Vital Signs Temp Pulse Resp BP Pulse Ox 98.3 F 69 18 107/69 99 07/20/17 14:13 07/20/17 14:13 07/20/17 14:13 07/20/17 14:13 07/20/17 14:13 - Physical Exam General Appearance: Yes: Nourished, Appropriately Dressed, Apparent Distress HEENT: positive: EOMI, CHIOMA, Normal ENT Inspection Respiratory/Chest: positive: Lungs Clear, Normal Breath Sounds. negative: Chest Tender, Respiratory Distress Cardiovascular: positive: Regular Rhythm, Regular Rate, S1, S2 Gastrointestinal/Abdominal: positive: Normal Bowel Sounds, Tender (suprapubic), Flat, Soft Musculoskeletal: positive: Normal Inspection. negative: CVA Tenderness Extremity: positive: Normal Capillary Refill, Normal Inspection, Normal Range of Motion Integumentary: positive: Normal Color, Dry, Warm Neurologic: positive: Fully Oriented, Alert, Normal Mood/Affect Medical Decision Making - Medical Decision Making 07/20/17 17:13 Urine positive for Blood and leukocyte esterase. UTI . Spoke to , police liaison for [facility], who was ok with discharging the patient today on Cipro since the patient will be seen tomorrow in the office. *DC/Admit/Observation/Transfer Diagnosis at time of Disposition: UTI (urinary tract infection) - Discharge Dispostion Disposition: HOME Condition at time of disposition: Improved Admit: No - Prescriptions Prescriptions: Ciprofloxacin 500 mg PO BID #20 [email or web address] Ciprofloxacin [Cipro -] 500 mg PO Q12H #28 tablet - Referrals - Patient Instructions Printed Discharge Instructions: Urinary Tract Infection Additional Instructions: Follow up with Dr. Hensley tomorrow. Come back to the ER for any new, worsening or concerning symptoms. - Post Discharge Activity
[2017-07-20 15:28] LABS: URINE APPEARANCE CLOUDY; URINE BILIRUBIN NEGATIVE (NEGATIVE); URINE BLOOD 3+ (NEGATIVE); URINE COLOR YELLOW; URINE GLUCOSE (UA) NEGATIVE (NEGATIVE); URINE KETONE NEGATIVE (NEGATIVE); URINE NITRITE POSITIVE (NEGATIVE); URINE PROTEIN NEGATIVE (NEGATIVE); URINE UROBILINOGEN NEGATIVE mg/dL (0.2-1.0)
[2017-07-20 15:38] LABS: URINE LEUK ESTERASE 3+ (NEGATIVE)
[2017-07-20 15:40] LABS: EPI CELLS FEW /HPF (FEW); URINE BACTERIA MANY /hpf (NONE SEEN); URINE MUCUS FEW
[2017-07-20] MEDS ORDERED: CIPROFLOXACIN 500 MG TABLET (RESTRICTED TO ID) PO ONE (15:49)
[2017-07-20 17:39] VITALS: BP 110/72; PULSE 61
== END 2017-07-20 17:39 | disposition home or self-care (01) ==
LOC: JER 14:04
DX: N39.0 Urinary tract infection, site not specified (principal)
CPT/HCPCS: 81003; 81015; 87086; 87186; 99282-25

== ENCOUNTER 2018-11-02 23:06 | Emergency (ER) | payer OTHER ==
[2018-11-02 23:11] VITALS: BP 128/80; PULSE 71; TEMP 98.3; BMI 26.5
[2018-11-03] MEDS ORDERED: ACETAMINOPHEN 325 MG TABLET (FP) PO ONE (01:09)
[2018-11-03] MEDS ORDERED: METOCLOPRAMIDE HCL INJECTION 10 MG/2 ML VIAL IM ONE (01:09)
[2018-11-03] MEDS ORDERED: ACETAMINOPHEN 325 MG TABLET (FP) ONE (01:12)
[2018-11-03] MEDS ORDERED: METOCLOPRAMIDE HCL INJECTION 10 MG/2 ML VIAL ONE (01:12)
--- NOTE | 2018-11-03 02:00 | PDOC ---
*Physical Exam - Vital Signs Last Vital Signs Temp Pulse Resp BP Pulse Ox 98.3 F 71 18 128/80 97 11/02/18 23:08 11/02/18 23:08 11/02/18 23:08 11/02/18 23:08 11/02/18 23:08 ED Treatment Course - Medications Given in the ED: ED Medications Discontinued Medications Generic Name Dose Route Start Last Admin Trade Name Juan Miguelq PRN Reason Stop Dose Admin Acetaminophen 975 mg 11/03/18 01:09 11/03/18 01:13 Tylenol - PO 11/03/18 01:10 975 mg ONCE ONE Administration Metoclopramide HCl 10 mg 11/03/18 01:09 11/03/18 01:13 Reglan Injection - IM 11/03/18 01:10 10 mg ONCE ONE Administration Medical Decision Making - Medical Decision Making 11/03/18 01:59 43y F presenting sp slip and fall, hitting her head, without LOC, vision changes , numbness/tingling/weakness but does endorse a headache and did vomit twice The patient was seen and evaluated in conjunction with LOBO Machado under my direct supervision, ancillary studies were reviewed. I independently evaluated the patient and I agree with the plan as outlined by LOBO Machado .
--- NOTE | 2018-11-03 02:10 | PDOC ---
History of Present Illness - General Chief Complaint: Head/Neck problem Stated Complaint: INJURY AT WORK Time Seen by Provider: 11/03/18 00:44 History Source: Patient Exam Limitations: No Limitations Past History - Past Medical History Allergies/Adverse Reactions: Allergies Allergy/AdvReac Type Severity Reaction Status Date / Time No Known Allergies Allergy Verified 11/03/18 01:46 Home Medications: Ambulatory Orders Ibuprofen 600 mg PO Q8H #60 tablet 04/19/17 COPD: No Kidney Stones: Yes - Surgical History Appendectomy: Yes - Reproductive History (#): 5 Para: 3 Therapeutic (s) & number: Yes (1) - Suicide/Smoking/Psychosocial Hx Smoking History: Never smoked Have you smoked in the past 12 months: No Hx Alcohol Use: No Drug/Substance Use Hx: No Substance Use Type: None Hx Substance Use Treatment: No *Physical Exam - Vital Signs Last Vital Signs Temp Pulse Resp BP Pulse Ox 98.3 F 71 18 128/80 97 11/02/18 23:08 11/02/18 23:08 11/02/18 23:08 11/02/18 23:08 11/02/18 23:08 - Physical Exam General Appearance: No: Apparent Distress HEENT: positive: EOMI, CHIOMA, Other (no head trauma) Neck: positive: Supple, Tender lateral (mild R traps TTP). negative: Rigid, Tender midline Respiratory/Chest: positive: Lungs Clear, Normal Breath Sounds. negative: Respiratory Distress Cardiovascular: positive: Regular Rhythm, Regular Rate, S1, S2. negative: Murmur Gastrointestinal/Abdominal: positive: Normal Bowel Sounds, Soft. 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 negative: Facial Droop, Sensory Deficit, Confused, Disoriented ED Treatment Course - Medications Given in the ED: ED Medications Discontinued Medications Generic Name Dose Route Start Last Admin Trade Name Freq PRN Reason Stop Dose Admin Acetaminophen 975 mg 11/03/18 01:09 11/03/18 01:13 Tylenol - PO 11/03/18 01:10 975 mg ONCE ONE Administration Metoclopramide HCl 10 mg 11/03/18 01:09 11/03/18 01:13 Reglan Injection - IM 11/03/18 01:10 10 mg ONCE ONE Administration Medical Decision Making - Medical Decision Making 43 y/o F with no sig pmh presents with posterior MAYER after slipping in kitchen at work at 3 PM yesterday, hitting back of head. No LOC occurred; was slightly lightheaded post fall. Patient took Motrin x2 around 5 PM and afterward had 2 episodes of NBNB emesis. Denies visual/gait changes, numbness/tingling/weakness of extremities, sob, cp, abd pain. Less concerned for ICH given no focal deficits on exam Given Tylenol and Reglan Will reassess 11/03/18 02:09 MAYER better after meds given (improved from 12/23 to 07/23) Stable for dc 11/03/18 02:34 *DC/Admit/Observation/Transfer Diagnosis at time of Disposition: Headache Qualifiers: Headache type: post-traumatic Headache chronicity pattern: acute headache Intractability: not intractable Qualified Code(s): G44.319 - Acute post- traumatic headache, not intractable - Discharge Dispostion Disposition: HOME Condition at time of disposition: Stable Decision to Admit order: No - Referrals - Patient Instructions Printed Discharge Instructions: DI for Post-traumatic Headache Additional Instructions: Thank you for choosing [facility]. It was a pleasure taking care of you. You may take Tylenol 650 mg or Motrin 600 mg every 6 hours by mouth as needed for mild to moderate pain. Take Motrin with food. Do not take more than 4000 mg of Tylenol in 1 day. Recommend rest Follow-up with your doctor in 2 days Return to the Emergency Department if your symptoms worsen or persist, you have vomiting, dizziness, weakness of extremities (arms and/or legs), changes in vision or walking or other concerning symptoms. - Post Discharge Activity
== END 2018-11-03 02:48 | disposition home or self-care (01) ==
LOC: JER 23:06
PROC: 3E023GC Introduction of Other Therapeutic Substance into Muscle, Percutaneous Approach (ICD-10-PCS; principal; 2018-11-02)
DX: S09.8XXA Other specified injuries of head, initial encounter (principal); G44.319 Acute post-traumatic headache, not intractable; W01.198A Fall on same level from slipping, tripping and stumbling with subsequent striking against other object, initial encounter; Y93.89 Activity, other specified; Y92.511 Restaurant or cafe as the place of occurrence of the external cause; Y99.0 Civilian activity done for income or pay
CPT/HCPCS: 99282-25